=== PATIENT | female | born 1995 ===

== ENCOUNTER 2018-11-16 12:45 | Emergency (ER) | payer MEDICAID ==
[2018-11-16 13:19] VITALS: BMI 48.9
[2018-11-16 13:21] VITALS: PULSE 81; RESP 17; TEMP 98.5; O2SAT 99
[2018-11-16 15:23] LABS: BASO # 0.1 K/uL (0.0-0.2); BASO % 0.5 % (0.0-2.0); EOS # 0.2 K/uL (0.0-0.7); EOS % 1.4 % (0.0-4.0); HEMOGLOBIN 13.9 g/dL (12.0-16.0); LYMPH % 25.1 % (20.0-40.0); MEAN CELL VOLUME 87.8 fl (81.0-99.0); MEAN CORPUSCULAR HEMOGLOBIN 28.6 pg (27.0-31.0); MEAN CORPUSCULAR HGB CONC 32.5 g/dL (33.0-37.0); MEAN PLATELET VOLUME 8.8 fl (7.2-11.7); MONO # 0.7 K/uL (0.0-0.8); MONO % 4.1 % (0.0-10.0); NEUT # 10.9 K/uL (1.8-7.0); NEUT % 68.9 % (50.0-75.0); NRBC % 0.1 % (0.0-0.0); PLATELET COUNT 346 K/uL (130-400); RBC 4.87 Mil/uL (3.80-5.20); RED CELL DISTRIBUTION WIDTH 15.1 % (11.5-14.5); WHITE BLOOD COUNT 15.9 K/uL (4.8-10.8)
[2018-11-16 15:31] LABS: SQUAMOUS EPITHIAL 3 /hpf (0-5); URINE BACTERIA RARE (<OCC); URINE BILIRUBIN NEGATIVE (NEGATIVE); URINE BLOOD LARGE (NEGATIVE); URINE CLARITY SLIGHTY-CLOUDY (Clear); URINE COLOR YELLOW (YELLOW); URINE GLUCOSE (UA) NEG (NEGATIVE); URINE LEUKOCYTE ESTERASE TRACE Leu/uL (Negative); URINE PROTEIN NEGATIVE (NEGATIVE); URINE UROBILINOGEN 0.2-1.0 mg/dL (0.2-1.0)
[2018-11-16 15:33] LABS: ALBUMIN 4.6 g/dL (3.5-5.0); BLOOD UREA NITROGEN 9 mg/dl (7-17); CALCIUM 9.8 mg/dL (8.4-10.2); GFR NON-AFRICAN AMERICAN > 60
[2018-11-16 15:35] LABS: ALT/SGPT 34 U/L (9-52); AST/SGOT 35 U/L (14-36)
--- NOTE | 2018-11-16 15:38 | ED PDOC ---
HPI: Female Pain Time Seen by Provider: 11/16/18 13:26 Chief Complaint (Nursing): Female Genitourinary Chief Complaint (Provider): Female Genitourinary History Per: Patient History/Exam Limitations: no limitations Onset/Duration Of Symptoms: Days (x14) Associated Symptoms: Urinary Symptoms (Vaginal bleeding and discharge) Additional Complaint(s): 22 y/o female presents to ER for evaluation of intermittent vaginal bleeding and discharge associated with urinary frequency onset 2 weeks ago. Patient states she has done home test last week that was negative. She states last intercourse was early October. Patient denies dysuria. LNMP: September 16, 2018 PMD: none provided Past Medical History Reviewed: Historical Data, Nursing Documentation, Vital Signs Vital Signs: Last Vital Signs Temp 98.5 F 11/16/18 13:20 Pulse 81 11/16/18 13:20 Resp 17 11/16/18 13:20 BP 131/84 11/16/18 13:20 Pulse Ox 99 11/16/18 13:20 - Medical History PMH: No Chronic Diseases - Surgical History Surgical History: No Surg Hx - Family History Family History: States: Unknown Family Hx - Home Medications Home Medications: Ambulatory Orders Medication Instructions Recorded Nitrofurantoin Macrocrystals 100 mg PO BID #14 cap 11/16/18 [Macrobid] - Allergies Allergies/Adverse Reactions: Allergies Allergy/AdvReac Type Severity Reaction Status Date / Time No Known Allergies Allergy Verified 11/16/18 13:19 Review of Systems ROS Statement: Except As Marked, All Systems Reviewed And Found Negative Genitourinary Female: Positive for: Frequency, Vaginal Discharge. Negative for: Dysuria Physical Exam - Reviewed Nursing Documentation Reviewed: Yes Vital Signs Reviewed: Yes - Physical Exam Appears: Positive for: Non-toxic, No Acute Distress Head Exam: Positive for: ATRAUMATIC, NORMOCEPHALIC Skin: Positive for: Normal Color, Warm, Dry Gastrointestinal/Abdominal: Positive for: Normal Exam, Soft. Negative for: Tenderness Back: Positive for: Normal Inspection. Negative for: L CVA Tenderness, R CVA Tenderness Neurologic/Psych: Positive for: Alert, Oriented (x3) - Laboratory Results Result Diagrams: 11/16/18 14:53 11/16/18 14:53 Lab Results: Total Bilirubin 0.4 mg/dl (0.2-1.3) 11/16/18 14:53 AST 35 U/L (14-36) 11/16/18 14:53 ALT 34 U/L (9-52) 11/16/18 14:53 Alkaline Phosphatase 145 U/L (38-126) H 11/16/18 14:53 Total Protein 9.0 G/DL (6.3-8.2) H 11/16/18 14:53 Albumin 4.6 g/dL (3.5-5.0) 11/16/18 14:53 Globulin 4.4 gm/dL (2.2-3.9) H 11/16/18 14:53 Albumin/Globulin Ratio 1.0 (1.0-2.1) 11/16/18 14:53 Urine Color Yellow (YELLOW) 11/16/18 15:00 Urine Clarity Slighty-cloudy (Clear) 11/16/18 15:00 Urine pH 6.0 (5.0-8.0) 11/16/18 15:00 Ur Specific [place] 1.010 (1.003-1.030) 11/16/18 15:00 Urine Protein Negative mg/dL (NEGATIVE) 11/16/18 15:00 Urine Glucose (UA) Neg mg/dL (NEGATIVE) 11/16/18 15:00 Urine Ketones Negative mg/dL (NEGATIVE) 11/16/18 15:00 Urine Blood Large (NEGATIVE) 11/16/18 15:00 Urine Nitrate Negative (NEGATIVE) 11/16/18 15:00 Urine Bilirubin Negative (NEGATIVE) 11/16/18 15:00 Urine Urobilinogen 0.2-1.0 mg/dL (0.2-1.0) 11/16/18 15:00 Ur Leukocyte Esterase Trace [place]/uL (Negative) 11/16/18 15:00 Urine RBC (Auto) 446 /hpf (0-3) H 11/16/18 15:00 Urine Microscopic WBC 12 /hpf (0-5) H 11/16/18 15:00 Ur Squamous Epith Cells 3 /hpf (0-5) 11/16/18 15:00 Urine Bacteria Rare (<OCC) 11/16/18 15:00 - ECG O2 Sat by Pulse Oximetry: 99 (RA) Pulse Ox Interpretation: Normal Medical Decision Making Medical Decision Making: Time: 1357 Initial Plan: --Beta-HCG --CMP --Urine --CBC --Chlamydia/GC RNA, TMA --Urinalysis Pt. informed that pelvic exam is required for a thorough and complete exam but pt. refused. WBC is elevated. Pt. denies abd pain. Abd soft and non-tender to deep palpation. Pt. informed of all results and advised to f/u with OBGYN (pt. has a private OBGYN but does not remember name) for further evaluation but is to return to ED immediately if symptoms worsen. Scribe Attestation: Documented by Lady Brunner, acting as a scribe for LUDA William. Provider Scribe Attestation: All medical record entries made by the Scribe were at my direction and personally dictated by me. I have reviewed the chart and agree that the record accurately reflects my personal performance of the history, physical exam, medical decision making, and the department course for this patient. I have also personally directed, reviewed, and agree with the discharge instructions and disposition. Disposition - Clinical Impression Clinical Impression: Urinary tract infection, DUB (dysfunctional uterine bleeding) - Patient ED Disposition Is Patient to be Admitted: No - Disposition [facility] Disposition: Routine/Home Disposition Time: 15:58 Condition: STABLE Additional Instructions: FOLLOW UP WITH YOUR OBGYN FOR FURTHER EVALUAITON RETURN TO ED IMMEDIATELY IF SYMPTOMS WORSEN ASAF RENTERIA, thank you for letting us take care of you today. Your provider was Akilah Mena MD and you were treated for FEMALE GENITOURINARY. The emergency medical care you received today was directed at your acute symptoms. If you were prescribed any medication, please fill it and take as directed. It may take several days for your symptoms to resolve. Return to the Emergency Department if your symptoms worsen, do not improve, or if you have any other problems. Please contact your doctor or call one of the physicians/clinics you have been referred to that are listed on the Patient Visit Information form that is included in your discharge packet. Bring any paperwork you were given at discharge with you along with any medications you are taking to your follow up visit. Our treatment cannot replace ongoing medical care by a primary care provider outside of the emergency department. Thank you for allowing the [facility] team to be part of your care today. If you had an X-Ray or CT scan: A Radiologist will review the ED reading if any change in treatment is needed we will contact you. If you had a blood, urine, or wound culture: It will take several days for the results, if any change in treatment is needed we will contact you. If you had an STI test: It will take 48 hours for the results. Please call after 1 week if you have not heard back. Prescriptions: Nitrofurantoin Macrocrystals [Macrobid] 100 mg PO BID #14 cap Instructions: Absent or Irregular Periods, Urinary Tract Infection, Adult (DC) Forms: [email or web address] (Mosotho) Print Language: CZECH
[2018-11-16 16:32] VITALS: BP 130/84
[2018-11-16 17:31] LABS: LYMPHOCYTE 16 % (20-50); MONOCYTE 3 % (0-10); NEUTROPHIL 81 % (42-75); PLATELET ESTIMATE NORMAL (NORMAL); TOTAL CELLS COUNTED 100
[2018-11-16 17:33] LABS: ANISOCYTOSIS SLIGHT; LARGE PLATELETS PRESENT; OVALOCYTES SLIGHT; TEARDROP CELLS SLIGHT
== END 2018-11-16 15:59 | disposition home or self-care (01) ==
LOC: H.ER 12:45
DX: N39.0 Urinary tract infection, site not specified (principal); N93.8 Other specified abnormal uterine and vaginal bleeding